=== PATIENT | female | born 1965 | race Hispanic/Latino ===

== ENCOUNTER 2017-09-26 08:48 | Outpatient (CLI) | payer SELFPAY ==
--- NOTE | 2017-10-01 14:30 | MMO ---
BILATERAL SCREENING MAMMOGRAM: Date: 09/26/17 INDICATION: Annual exam. COMPARISON: Prior exam dated 04/12/16. FINDINGS: Interpretation of this exam was assisted with computer-aided detection. There are scattered fibroglandular elements bilaterally. No suspicious mass, cluster of microcalcifications, or area of architectural distortion is evident. IMPRESSION: BIRADS 1: Negative Recommend routine annual mammographic screening. POS: [facility]
== END 2017-09-26 08:49 | disposition home or self-care (01) ==
LOC: SCSMAMMO 08:48
PROVIDERS: ATTEND Family Medicine
DX: Z12.31 Encounter for screening mammogram for malignant neoplasm of breast (principal)
CPT/HCPCS: 77067